=== PATIENT | male | born 1960 | race Caucasian/White ===

== ENCOUNTER 2017-04-30 10:47 | Emergency (ER) | payer BC ==
[2017-04-30] MEDS ORDERED: SODIUM CHLORIDE 0.9% 500 ML IV STA ×2 (11:26→14:50)
[2017-04-30] MEDS ORDERED: SODIUM CHLORIDE 0.9% 1,000 ML IV STA (11:26)
[2017-04-30] MEDS ORDERED: HYDROmorphone 1 MG/ML 1 ML SYRINGE IVP STA ×2 (11:27→14:51)
[2017-04-30] MEDS ORDERED: METOCLOPRAMIDE 5 MG/ML 2 ML VIAL IVP STA (11:27)
--- NOTE | 2017-04-30 11:32 | ED ---
General Adult HPI - General Chief complaint: Neuro Symptoms/Deficit Stated complaint: heart palps Time Seen by Provider: 04/30/17 11:16 Source: patient, family, RN notes reviewed Mode of arrival: ambulatory Limitations: no limitations - History of Present Illness Initial comments: Patient is a pleasant 56-year-old male presenting to the emergency department with complaints of headache and not feeling well. Patient woke up around 7:30 this morning and did complain of headache. Headache is diffuse and severe. Headache has been constant since he woke. Patient has felt somewhat foggy since around 9:00 or so. Patient does have some nausea. No isolated area of weakness. Patient states his face felt a little bit numb earlier. Patient does have a history of similar problem previously and was unclear whether or not symptoms were related to TIA or headache. Patient did see a neurologist who thought symptoms were more related to headache. She was diagnosed with occipital neuralgia. Patient did have injections at that time which did help with his headaches. Patient does have some history with headaches however is unclear on how frequent headaches occur. Patient denies any isolated area of weakness. - Related Data Home Medications Medication Instructions Recorded Confirmed Fluticasone Propionate [Flonase 1 spray EA NOSTRIL DAILY 04/30/17 04/30/17 Allergy Relief] Loratadine [Claritin] 10 mg PO DAILY 04/30/17 04/30/17 Losartan/Hydrochlorothiazide 1 tab PO DAILY 04/30/17 04/30/17 [Losartan-Hctz 100-25 mg Tab] Sertraline [Zoloft] 50 mg PO HS 04/30/17 04/30/17 Previous Rx's Medication Instructions Recorded ALPRAZolam [Xanax] 0.25 mg PO BID PRN #0 tab 02/22/16 Aspirin 81 mg PO DAILY #30 chew 02/22/16 Allergies Allergy/AdvReac Type Severity Reaction Status Date / Time Penicillins Allergy Rash/Hives Verified 04/30/17 11:36 rawfruit Allergy Anaphylaxis Uncoded 04/30/17 11:36 Review of Systems ROS Statement: Those systems with pertinent positive or pertinent negative responses have been documented in the HPI. ROS Other: All systems not noted in ROS Statement are negative. Constitutional: Denies: fever Eyes: Denies: eye pain ENT: Denies: ear pain Respiratory: Denies: cough Cardiovascular: Denies: chest pain Endocrine: Denies: fatigue Gastrointestinal: Denies: abdominal pain Genitourinary: Denies: dysuria Musculoskeletal: Denies: back pain Skin: Denies: rash Neurological: Reports: headache, paresthesias, confusion. Denies: weakness Past Medical History Past Medical History: CVA/TIA, Hypertension Additional Past Medical History / Comment(s): Pt was born with one kidney, past UTI, occipital neuralgia History of Any Multi-Drug Resistant Organisms: None Reported Past Surgical History: Back Surgery Additional Past Surgical History / Comment(s): 2 back surgeries-fusions and refusion. Past Anesthesia/Blood Transfusion Reactions: No Reported Reaction Additional Past Anesthesia/Blood Transfusion Reaction / Comment(s): Pt has never received blood. Past Psychological History: Anxiety Smoking Status: Former smoker Past Alcohol Use History: Occasional Past Drug Use History: None Reported - Past Family History Father Family Medical History: Coronary Artery Disease (CAD), Myocardial Infarction ([place] ) Additional Family Medical History / Comment(s): Father has had colectomy for GI bleed. He is 87 yrs old. Mother Family Medical History: Coronary Artery Disease (CAD) Additional Family Medical History / Comment(s): Mother has cardiac stent. She is 76yrs old. General Exam Limitations: no limitations General appearance: alert, in no apparent distress Head exam: Present: atraumatic Eye exam: Present: normal appearance, PERRL, EOMI. Absent: nystagmus ENT exam: Present: normal oropharynx Neck exam: Present: normal inspection Respiratory exam: Present: normal lung sounds bilaterally Cardiovascular Exam: Present: regular rate, normal rhythm GI/Abdominal exam: Present: soft. Absent: tenderness Extremities exam: Present: normal inspection Neurological exam: Present: alert, oriented X3, CN II-XII intact. Absent: motor sensory deficit Expanded Patient oriented to: Present: person, place, time Speech: Present: fluid speech Cranial nerves: EOM's Intact: Normal, Facial Sensation: Normal Sensory exam: Upper Extremity Light Touch: Normal, Lower Extremity Light Touch: Normal Motor strength exam: RUE: 5, LUE: 5, RLE: 5, LLE: 5 Eye Response: (4) open spontaneously Motor Response: (6) obeys commands Verbal Response: (5) oriented Psychiatric exam: Present: normal affect, normal mood Skin exam: Present: normal color Course Vital Signs 04/30/17 04/30/17 04/30/17 10:49 11:53 13:43 Temperature 98.9 F Pulse Rate 82 74 58 L Respiratory 16 20 20 Rate Blood Pressure 192/88 167/84 143/81 O2 Sat by Pulse 99 98 96 Oximetry 04/30/17 04/30/17 14:00 15:00 Temperature Pulse Rate 60 68 Respiratory 18 18 Rate Blood Pressure 141/64 140/71 O2 Sat by Pulse 95 98 Oximetry EKG Findings - EKG Comments: EKG Findings:: Normal sinus rhythm 73. NV 146. QRS 98. QT 374. QTC 412. Normal axis. Normal QRS. No acute ST change. Medical Decision Making - Medical Decision Making Patient reexamined and is feeling better. Patient states he does get these headaches similar to this all the time and requests discharge home. Patient requests work note through Friday. - Lab Data Result diagrams: 04/30/17 11:10 04/30/17 11:10 Lab Results 04/30/17 04/30/17 04/30/17 Range/Units 11:10 11:10 11:10 WBC 7.2 (3.8-10.6) k/uL RBC 5.18 (4.30-5.90) m/uL Hgb 16.7 (13.0-17.5) gm/dL Hct 49.6 (39.0-53.0) % MCV 95.7 (80.0-100.0) fL MCH 32.2 (25.0-35.0) pg MCHC 33.7 (31.0-37.0) g/dL RDW 12.5 (11.5-15.5) % Plt Count 160 (150-450) k/uL Neutrophils % 74 % Lymphocytes % 18 % Monocytes % 5 % Eosinophils % 1 % Basophils % 1 % Neutrophils # 5.3 (1.3-7.7) k/uL Lymphocytes # 1.3 (1.0-4.8) k/uL Monocytes # 0.4 (0-1.0) k/uL Eosinophils # 0.1 (0-0.7) k/uL Basophils # 0.1 (0-0.2) k/uL PT (9.0-12.0) sec INR (<1.2) APTT (22.0-30.0) sec Sodium 137 (137-145) mmol/L Potassium 4.7 (3.5-5.1) mmol/L Chloride 104 (98-107) mmol/L Carbon Dioxide 21 L (22-30) mmol/L Anion Gap 12 mmol/L BUN 11 (9-20) mg/dL Creatinine 0.85 (0.66-1.25) mg/dL Est GFR (MDRD) Af Amer >60 (>60 ml/min/1.73 sqM) Est GFR (MDRD) Non-Af >60 (>60 ml/min/1.73 sqM) Glucose 134 H (74-99) mg/dL Calcium 9.8 (8.4-10.2) mg/dL Magnesium 2.0 (1.6-2.3) mg/dL Total Bilirubin 0.7 (0.2-1.3) mg/dL AST 35 (17-59) U/L ALT 36 (21-72) U/L Alkaline Phosphatase 53 (38-126) U/L Total Creatine Kinase 201 H (55-170) U/L CK-MB (CK-2) 4.0 H* (0.0-2.4) ng/mL CK-MB (CK-2) Rel Index 2.0 Troponin I <0.012 (0.000-0.034) ng/mL Total Protein 7.5 (6.3-8.2) g/dL Albumin 4.7 (3.5-5.0) g/dL Free T4 1.09 (0.78-2.19) ng/dL Free T3 pg/mL 3.1 (2.8-5.3) pg/ml 04/30/17 Range/Units 11:10 WBC (3.8-10.6) k/uL RBC (4.30-5.90) m/uL Hgb (13.0-17.5) gm/dL Hct (39.0-53.0) % MCV (80.0-100.0) fL MCH (25.0-35.0) pg MCHC (31.0-37.0) g/dL RDW (11.5-15.5) % Plt Count (150-450) k/uL Neutrophils % % Lymphocytes % % Monocytes % % Eosinophils % % Basophils % % Neutrophils # (1.3-7.7) k/uL Lymphocytes # (1.0-4.8) k/uL Monocytes # (0-1.0) k/uL Eosinophils # (0-0.7) k/uL Basophils # (0-0.2) k/uL PT 10.6 (9.0-12.0) sec INR 1.0 (<1.2) APTT 25.0 (22.0-30.0) sec Sodium (137-145) mmol/L Potassium (3.5-5.1) mmol/L Chloride (98-107) mmol/L Carbon Dioxide (22-30) mmol/L Anion Gap mmol/L BUN (9-20) mg/dL Creatinine (0.66-1.25) mg/dL Est GFR (MDRD) Af Amer (>60 ml/min/1.73 sqM) Est GFR (MDRD) Non-Af (>60 ml/min/1.73 sqM) Glucose (74-99) mg/dL Calcium (8.4-10.2) mg/dL Magnesium (1.6-2.3) mg/dL Total Bilirubin (0.2-1.3) mg/dL AST (17-59) U/L ALT (21-72) U/L Alkaline Phosphatase (38-126) U/L Total Creatine Kinase (55-170) U/L CK-MB (CK-2) (0.0-2.4) ng/mL CK-MB (CK-2) Rel Index Troponin I (0.000-0.034) ng/mL Total Protein (6.3-8.2) g/dL Albumin (3.5-5.0) g/dL Free T4 (0.78-2.19) ng/dL Free T3 pg/mL (2.8-5.3) pg/ml Disposition Clinical Impression: Cephalgia Disposition: HOME SELF-CARE Condition: Stable Instructions: General Headache (ED) Additional Instructions: Please follow-up with your doctor this week. Return for weakness, loss of sensation, fever, worsening symptoms or other concerns. Referrals: Adelfo Antunez DO [Primary Care Provider] - 1-2 days Time of Disposition: 16:16
[2017-04-30 11:51] LABS: Basophils # (A) 0.1 k/uL (0-0.2); Basophils % (A) 1 %; CHCM 33.6; Eosinophils # (A) 0.1 k/uL (0-0.7); Eosinophils % (A) 1 %; HCT 49.6 % (39.0-53.0); HDW 2.33; HGB 16.7 gm/dL (13.0-17.5); Luc # (Auto) 0.15; Luc % (Auto) 2; Lymphocytes # (A) 1.3 k/uL (1.0-4.8); Lymphocytes % (A) 18 %; MCH 32.2 pg (25.0-35.0); MCHC 33.7 g/dL (31.0-37.0); MCV 95.7 fL (80.0-100.0); Mean Platelet Volume 7.8; Monocytes # (A) 0.4 k/uL (0-1.0); Monocytes % (A) 5 %; Neutrophils # (A) 5.3 k/uL (1.3-7.7); Neutrophils % (A) 74 %; RBC 5.18 m/uL (4.30-5.90); RDW 12.5 % (11.5-15.5); WBC 7.2 k/uL (3.8-10.6); WBC (Perox) 7.23
[2017-04-30 12:02] LABS: Prothrombin Time 10.6 sec (9.0-12.0)
[2017-04-30 12:14] LABS: ALT 36 U/L (21-72); AST 35 U/L (17-59); Alkaline Phosphatase 53 U/L (38-126); Anion Gap 12 mmol/L; Blood Urea Nitrogen 11 mg/dL (9-20); Calcium 9.8 mg/dL (8.4-10.2); Carbon Dioxide 21 mmol/L (22-30); Chloride 104 mmol/L (98-107); Glucose 134 mg/dL (74-99); Non-African American GFR(MDRD) >60 (>60 ml/min/1.73 sqM); Potassium 4.7 mmol/L (3.5-5.1); Sodium 137 mmol/L (137-145); Total Bilirubin 0.7 mg/dL (0.2-1.3); Total Protein 7.5 g/dL (6.3-8.2)
--- NOTE | 2017-04-30 12:15 | XR ---
EXAMINATION TYPE: XR chest 2V DATE OF EXAM: 04/30/2017 COMPARISON: 02/21/2016 HISTORY: Shortness of breath TECHNIQUE: Frontal and lateral views of the chest are obtained. FINDINGS: Scattered senescent parenchymal changes noted. Hyperinflation compatible with COPD. No evidence for infiltrate. No evidence for atelectasis. Heart size is stable. Mediastinal structures are stable and grossly unremarkable. No evidence for hilar prominence. Degenerative changes dorsal spine. IMPRESSION: 1. No evidence for acute pulmonary disease.
[2017-04-30 12:19] LABS: Creatine Kinase 201 U/L (55-170)
--- NOTE | 2017-04-30 12:26 | CT ---
EXAMINATION TYPE: CT brain wo con for TPA DATE OF EXAM: 04/30/2017 COMPARISON: 02/21/2016 HISTORY: Neuro deficits CT DLP: [address] of the brain was performed. The ventricles, basal cisterns and sulci overlying the cerebral convexities demonstrate mild enlargem ent. There is no evidence for intracranial hemorrhage or sulcal effacement. There is decreased attenuation about the periventricular white matter and deep white matter of both c erebral hemispheres, compatible with chronic small vessel ischemia. Differential diagnosis does inclu de demyelination. No mass effects are seen.No midline shift. Osseous calvarium is intact. If symptoms persist consider MRI. IMPRESSION: 1. Age related atrophic and chronic small vessel ischemic change without acute intracranial process s een at this time.
[2017-04-30 12:32] LABS: Troponin I <0.012 ng/mL (0.000-0.034)
[2017-04-30 14:21] VITALS: RESP 18
[2017-04-30] MEDS ORDERED: diphenhydrAMINE 50 MG/ML 1 ML VIAL IVP STA (14:50)
[2017-04-30] MEDS ORDERED: methylPREDNISolone SOD SUCCI 125 MG/2 ML VIAL IV STA (14:50)
[2017-04-30 16:20] VITALS: BP 163/87; PULSE 58; TEMP 97.7
== END 2017-04-30 16:27 | disposition home or self-care (01) ==
LOC: EC 10:47
DX: R51 Headache (principal); R11.0 Nausea; I10 Essential (primary) hypertension; Z86.73 Personal history of transient ischemic attack (TIA), and cerebral infarction without residual deficits; Z79.51 Long term (current) use of inhaled steroids; Z79.899 Other long term (current) drug therapy; Z88.6 Allergy status to analgesic agent; Z91.018 Allergy to other foods
CPT/HCPCS: 36415; 93005; 84439; 84481; 80053; 82550; 82553; 83735; 84484; 85025; 85610; 85730; 71020; 70450; 99285; 96374; 96375 ×3; 96376; 96361 ×5; J1200; J2765; J2930; J1170

== ENCOUNTER 2017-11-17 13:26 | Observation (INO) | payer BC ==
[2017-11-17] MEDS ORDERED: RX INFO: IV CONTRAST WAS GIVEN 1 EACH MISC MISCELLANE PRN (13:45)
--- NOTE | 2017-11-17 13:52 | ED ---
General Adult HPI - General Chief complaint: Neuro Symptoms/Deficit Stated complaint: Hypertension, Dizziness Time Seen by Provider: 11/17/17 13:32 Source: patient, EMS, RN notes reviewed Mode of arrival: EMS Limitations: no limitations - History of Present Illness Initial comments: 57-year-old presents from work with dizziness, and headache. Patient is unable to give a complete history. EMS states he has said both of his headache began suddenly and is also had a headache for the past 24 hours. He does have history of TIA. Patient complains of headache, he describes it as right retro- orbital. He is unable to give significant details of the history. He somewhat confused. EMS reported elevated blood pressure in the 180s systolic. Denies chest pain, denies abdominal pain. - Related Data Home Medications Medication Instructions Recorded Confirmed Loratadine [Claritin] 10 mg PO DAILY 04/30/17 11/17/17 Losartan/Hydrochlorothiazide 1 tab PO DAILY 04/30/17 11/17/17 [Losartan-Hctz 100-25 mg Tab] Sertraline [Zoloft] 50 mg PO HS 04/30/17 04/30/17 Aspirin 325 mg PO DAILY 11/17/17 11/17/17 Allergies Allergy/AdvReac Type Severity Reaction Status Date / Time Penicillins Allergy Rash/Hives Verified 11/17/17 13:56 rawfruit Allergy Anaphylaxis Uncoded 11/17/17 13:40 Review of Systems ROS Statement: Those systems with pertinent positive or pertinent negative responses have been documented in the HPI. ROS Other: All systems not noted in ROS Statement are negative. Past Medical History Past Medical History: CVA/TIA, Hypertension Additional Past Medical History / Comment(s): Pt was born with one kidney, past UTI, occipital neuralgia History of Any Multi-Drug Resistant Organisms: None Reported Past Surgical History: Back Surgery Additional Past Surgical History / Comment(s): 2 back surgeries-fusions and refusion. Past Anesthesia/Blood Transfusion Reactions: No Reported Reaction Additional Past Anesthesia/Blood Transfusion Reaction / Comment(s): Pt has never received blood. Past Psychological History: Anxiety Smoking Status: Former smoker Past Alcohol Use History: Occasional Past Drug Use History: None Reported - Past Family History Father Family Medical History: Coronary Artery Disease (CAD), Myocardial Infarction ([place] ) Additional Family Medical History / Comment(s): Father has had colectomy for GI bleed. He is 87 yrs old. Mother Family Medical History: Coronary Artery Disease (CAD) Additional Family Medical History / Comment(s): Mother has cardiac stent. She is 76yrs old. General Exam Limitations: no limitations General appearance: alert Head exam: Present: atraumatic, normocephalic, other (Tenderness, bilateral occipital and upper cervical region) Eye exam: Present: normal appearance, PERRL, EOMI ENT exam: Present: normal exam Neck exam: Present: normal inspection, tenderness. Absent: meningismus Respiratory exam: Present: normal lung sounds bilaterally. Absent: respiratory distress, wheezes Cardiovascular Exam: Present: regular rate, normal rhythm GI/Abdominal exam: Present: soft. Absent: distended, tenderness Extremities exam: Present: normal inspection, normal capillary refill. Absent: pedal edema, calf tenderness Neurological exam: Present: alert, oriented X3, CN II-XII intact. Absent: motor sensory deficit Psychiatric exam: Present: normal affect, normal mood Skin exam: Present: warm, dry, intact. Absent: cyanosis, diaphoretic Course Vital Signs 11/17/17 13:38 Temperature 98.8 F Pulse Rate 89 Respiratory 18 Rate Blood Pressure 162/93 O2 Sat by Pulse 98 Oximetry - Reevaluation(s) Reevaluation #1: 11/17/17 15:49 Further history obtained from the patient's states that he has been complaining of a headache for the past several days he had an episode of vomiting. Patient had similar presentation approximately one year ago, was diagnosed with TIA and occipital neuralgia according to the patient's . EKG Findings - EKG Comments: EKG Findings:: EKG: Normal sinus rhythm, ventricular rate of 88, CO interval 174 , QRS duration 88, QTC 425, there is no ST segment elevation, there is prominent T waves throughout. Medical Decision Making - Medical Decision Making 57-year-old male presenting with headache, history limited at the time of presentation. Blood pressure is elevated, there is nonfocal neurologic exam. Given the elevated blood pressure and severe headache, CT and CT angiography is obtained for concern for intracranial hemorrhage or aneurysm. The studies are both negative. Patient is given headache medication in the emergency department with minimal relief. Further history obtained from the patient's , he did have similar presentation previously, neurology felt this was likely occipital neuralgia, but there was concern for TIA. Patient's presentation is more consistent with headache rather than TIA or CVA. However patient's headache fails to improve in the emergency department. He will be admitted for symptomatically treatment of headache and neurology evaluation. - Lab Data Result diagrams: 11/17/17 13:48 11/17/17 13:48 Lab Results 11/17/17 11/17/17 11/17/17 Range/Units 13:48 13:48 13:48 WBC 8.8 (3.8-10.6) k/uL RBC 5.20 (4.30-5.90) m/uL Hgb 15.7 (13.0-17.5) gm/dL Hct 46.5 (39.0-53.0) % MCV 89.3 (80.0-100.0) fL MCH 30.2 (25.0-35.0) pg MCHC 33.8 (31.0-37.0) g/dL RDW 12.5 (11.5-15.5) % Plt Count 155 (150-450) k/uL Neutrophils % 81 % Lymphocytes % 12 % Monocytes % 5 % Eosinophils % 1 % Basophils % 1 % Neutrophils # 7.2 (1.3-7.7) k/uL Lymphocytes # 1.0 (1.0-4.8) k/uL Monocytes # 0.4 (0-1.0) k/uL Eosinophils # 0.1 (0-0.7) k/uL Basophils # 0.0 (0-0.2) k/uL PT (9.0-12.0) sec INR (<1.2) APTT (22.0-30.0) sec Sodium 139 (137-145) mmol/L Potassium 4.2 (3.5-5.1) mmol/L Chloride 103 (98-107) mmol/L Carbon Dioxide 24 (22-30) mmol/L Anion Gap 12 mmol/L BUN 18 (9-20) mg/dL Creatinine 0.79 (0.66-1.25) mg/dL Est GFR (CKD-EPI)AfAm >90 (>60 ml/min/1.73 sqM) Est GFR (CKD-EPI)NonAf >90 (>60 ml/min/1.73 sqM) Glucose 132 H (74-99) mg/dL Calcium 9.8 (8.4-10.2) mg/dL Total Bilirubin 0.4 (0.2-1.3) mg/dL AST 21 (17-59) U/L ALT 33 (21-72) U/L Alkaline Phosphatase 40 (38-126) U/L Total Creatine Kinase 159 (55-170) U/L CK-MB (CK-2) 3.3 H* (0.0-2.4) ng/mL CK-MB (CK-2) Rel Index 2.1 Troponin I <0.012 (0.000-0.034) ng/mL Total Protein 6.9 (6.3-8.2) g/dL Albumin 4.3 (3.5-5.0) g/dL Urine Color Urine Appearance (Clear) Urine pH (5.0-8.0) Ur Specific [place] (1.001-1.035) Urine Protein (Negative) Urine Glucose (UA) (Negative) Urine Ketones (Negative) Urine Blood (Negative) Urine Nitrite (Negative) Urine Bilirubin (Negative) Urine Urobilinogen (<2.0) mg/dL Ur Leukocyte Esterase (Negative) Urine Opiates Screen (NotDetected) Ur Oxycodone Screen (NotDetected) Urine Methadone Screen (NotDetected) Ur Propoxyphene Screen (NotDetected) Ur Barbiturates Screen (NotDetected) U Tricyclic Antidepress (NotDetected) Ur Phencyclidine Scrn (NotDetected) Ur Amphetamines Screen (NotDetected) U Methamphetamines Scrn (NotDetected) U Benzodiazepines Scrn (NotDetected) Urine Cocaine Screen (NotDetected) U Marijuana (THC) Screen (NotDetected) 11/17/17 11/17/17 Range/Units 13:48 14:17 WBC (3.8-10.6) k/uL RBC (4.30-5.90) m/uL Hgb (13.0-17.5) gm/dL Hct (39.0-53.0) % MCV (80.0-100.0) fL MCH (25.0-35.0) pg MCHC (31.0-37.0) g/dL RDW (11.5-15.5) % Plt Count (150-450) k/uL Neutrophils % % Lymphocytes % % Monocytes % % Eosinophils % % Basophils % % Neutrophils # (1.3-7.7) k/uL Lymphocytes # (1.0-4.8) k/uL Monocytes # (0-1.0) k/uL Eosinophils # (0-0.7) k/uL Basophils # (0-0.2) k/uL PT 10.2 (9.0-12.0) sec INR 1.0 (<1.2) APTT 22.6 (22.0-30.0) sec Sodium (137-145) mmol/L Potassium (3.5-5.1) mmol/L Chloride (98-107) mmol/L Carbon Dioxide (22-30) mmol/L Anion Gap mmol/L BUN (9-20) mg/dL Creatinine (0.66-1.25) mg/dL Est GFR (CKD-EPI)AfAm (>60 ml/min/1.73 sqM) Est GFR (CKD-EPI)NonAf (>60 ml/min/1.73 sqM) Glucose (74-99) mg/dL Calcium (8.4-10.2) mg/dL Total Bilirubin (0.2-1.3) mg/dL AST (17-59) U/L ALT (21-72) U/L Alkaline Phosphatase (38-126) U/L Total Creatine Kinase (55-170) U/L CK-MB (CK-2) (0.0-2.4) ng/mL CK-MB (CK-2) Rel Index Troponin I (0.000-0.034) ng/mL Total Protein (6.3-8.2) g/dL Albumin (3.5-5.0) g/dL Urine Color Colorless Urine Appearance Clear (Clear) Urine pH 6.0 (5.0-8.0) Ur Specific [place] 1.011 (1.001-1.035) Urine Protein Negative (Negative) Urine Glucose (UA) Negative (Negative) Urine Ketones Negative (Negative) Urine Blood Negative (Negative) Urine Nitrite Negative (Negative) Urine Bilirubin Negative (Negative) Urine Urobilinogen <2.0 (<2.0) mg/dL Ur Leukocyte Esterase Negative (Negative) Urine Opiates Screen Not Detected (NotDetected) Ur Oxycodone Screen Not Detected (NotDetected) Urine Methadone Screen Not Detected (NotDetected) Ur Propoxyphene Screen Not Detected (NotDetected) Ur Barbiturates Screen Not Detected (NotDetected) U Tricyclic Antidepress Not Detected (NotDetected) Ur Phencyclidine Scrn Not Detected (NotDetected) Ur Amphetamines Screen Not Detected (NotDetected) U Methamphetamines Scrn Not Detected (NotDetected) U Benzodiazepines Scrn Not Detected (NotDetected) Urine Cocaine Screen Not Detected (NotDetected) U Marijuana (THC) Screen Not Detected (NotDetected) Disposition Clinical Impression: Headache, Intractable headache Disposition: ADMITTED IP TO THIS [facility] Condition: Stable Is patient prescribed a controlled substance at discharge?: No Referrals: Adelfo Antunez DO [Primary Care Provider] - 1-2 days Decision to Admit Reason: Admit from EC Decision Date: 11/17/17 Decision Time: 16:10
[2017-11-17 13:58] LABS: Basophils % (A) 1 %; Eosinophils # (A) 0.1 k/uL (0-0.7); Eosinophils % (A) 1 %; HCT 46.5 % (39.0-53.0); HGB 15.7 gm/dL (13.0-17.5); Lymphocytes % (A) 12 %; MCH 30.2 pg (25.0-35.0); MCHC 33.8 g/dL (31.0-37.0); MCV 89.3 fL (80.0-100.0); Monocytes # (A) 0.4 k/uL (0-1.0); Monocytes % (A) 5 %; Neutrophils # (A) 7.2 k/uL (1.3-7.7); Neutrophils % (A) 81 %; Platelet Count 155 k/uL (150-450); RDW 12.5 % (11.5-15.5); WBC 8.8 k/uL (3.8-10.6)
--- NOTE | 2017-11-17 14:00 | CT ---
EXAMINATION TYPE: CT brain wo con DATE OF EXAM: 11/17/2017 COMPARISON: 04/30/2017 HISTORY: 57-year-old male nonverbal at time of exam. Confusion, altered mental status with history of prior TIA. TECHNIQUE: Examination was done in axial plane without intravenous contrast. Coronal and sagittal r econstructions performed. CT DLP: 793 mGycm Automated exposure control for dose reduction was used. FINDINGS: There is no evidence of acute intracranial hemorrhage, acute ischemic changes, mass, mass-effect, or extra-axial fluid collection. There is no effacement of cerebral sulci or basal subarachnoid cister ns. There is no hydrocephalus. There is no midline shift. Moffett-white matter distinction is preserv ed. Trace mucosal thickening within the ethmoid air cells. Mastoid air cells well pneumatized. Visualized orbits and globes are intact. IMPRESSION: No acute intracranial abnormality seen.
[2017-11-17 14:06] LABS: ALT 33 U/L (21-72); AST 21 U/L (17-59); Albumin 4.3 g/dL (3.5-5.0); Alkaline Phosphatase 40 U/L (38-126); Anion Gap 12 mmol/L; Blood Urea Nitrogen 18 mg/dL (9-20); Calcium 9.8 mg/dL (8.4-10.2); Carbon Dioxide 24 mmol/L (22-30); Chloride 103 mmol/L (98-107); Glucose 132 mg/dL (74-99); Partial Thromboplastin Time 22.6 sec (22.0-30.0); Potassium 4.2 mmol/L (3.5-5.1); Prothrombin Time 10.2 sec (9.0-12.0); Sodium 139 mmol/L (137-145); Total Bilirubin 0.4 mg/dL (0.2-1.3); Total Protein 6.9 g/dL (6.3-8.2)
--- NOTE | 2017-11-17 14:21 | XR ---
EXAMINATION TYPE: XR chest 2V DATE OF EXAM: 11/17/2017 COMPARISON: 04/30/2017 HISTORY: 57-year-old male confusion, altered mental status TECHNIQUE: AP and lateral views FINDINGS: The cardiomediastinal silhouette, aorta, and pulmonary vasculature are within normal limits. Lungs an d pleural spaces are clear. IMPRESSION: No acute cardiopulmonary process.
[2017-11-17 14:23] LABS: Creatine Kinase 159 U/L (55-170)
--- NOTE | 2017-11-17 14:33 | CT ---
EXAMINATION TYPE: CT angio head neck DATE OF EXAM: 11/17/2017 HISTORY: Patient shows signs of altered mental status. COMPARISON: CTA head and neck February 21, 2016 CT DLP: 344.6 mGycm. Automated Exposure Control for Dose Reduction was Utilized. TECHNIQUE: CTA scan of the neck is performed with IV Contrast, patient injected with 65 mL of Isovue 370, axial images are obtained, coronal and sagittal reformatted images are reviewed. Three-D recons tructed images are created on an independent workstation and reviewed. FINDINGS: Carotid/Vascular Structures: Bovine type aortic arch is redemonstrated. There is minimal noncalcified plaque in aortic arch. There is no significant plaque or stenosis in visualized portion of brachioce phalic or subclavian arteries bilaterally. The right common carotid artery shows normal origin from r ight brachiocephalic artery. There is mild calcified plaque supraclinoid segment of distal right inte rnal carotid artery otherwise there is is no significant plaque or stenosis in the right common or in ternal carotid arteries including at level carotid bulb. There is patent external carotid artery with out significant plaque or stenosis. There is no significant plaque or stenosis of left common or internal carotid arteries including at l evel of left carotid bulb. There is patent left external carotid artery without significant plaque or stenosis. There is codominant vertebral basilar system. Vertebral arteries are patent to basilar junction. Ther e is no significant focal stenosis or aneurysmal change in the posterior circulation. There are hypop lastic posterior communicating arteries noted bilaterally. Images of the anterior circulation show small caliber but patent anterior communicating artery. There is no significant focal stenosis or aneurysmal change seen. Other: There are multilevel uncovertebral facet degenerative changes bilaterally may cervical spine. There are calcified pleural plaques redemonstrated bilaterally suggesting product of prior asbestos e xposure. IMPRESSION: 1. No significant plaque or stenosis at level of common or internal carotid arteries bilaterally. 2. No aneurysmal change at the level of [place] [facility] [place].
[2017-11-17 14:36] LABS: Troponin I <0.012 ng/mL (0.000-0.034)
[2017-11-17 14:38] LABS: Appearance,Urine Clear (Clear); Bilirubin,Urine Negative (Negative); Blood,Urine Negative (Negative); Color,Urine Colorless; Glucose,Urine (UA) Negative (Negative); Ketones,Urine Negative (Negative); Leukocyte Esterase,Urine Negative (Negative); Nitrite,Urine Negative (Negative); Protein,Urine Negative (Negative); Specific Gravity,Urine 1.011 (1.001-1.035); Urobilinogen,Urine <2.0 mg/dL (<2.0)
[2017-11-17 14:44] LABS: Amphetamine Screen,Urine Not Detected (NotDetected); Barbiturate Screen,Urine Not Detected (NotDetected); Benzodiazepines Screen,Urine Not Detected (NotDetected); Cocaine Screen,Urine Not Detected (NotDetected); Methadone Screen, Urine Not Detected (NotDetected); Opiate Screen,Urine Not Detected (NotDetected); Oxycodone Screen, Urine Not Detected (NotDetected); Phencyclidine Screen,Urine Not Detected (NotDetected); Tricyclic Antidepressant,Urine Not Detected (NotDetected); Urn Cannabinoid Scrn Not Detected (NotDetected)
[2017-11-17 14:49] LABS: Creatine Kinase MB 3.3 ng/mL (0.0-2.4)
[2017-11-17] MEDS ORDERED: KETOROLAC 30 MG/ML 1 ML VIAL IVP STA (14:58)
[2017-11-17] MEDS ORDERED: ONDANSETRON 4 MG/2 ML VIAL IVP STA (14:58)
[2017-11-17] MEDS ORDERED: SODIUM CHLORIDE 0.9% 500 ML IV ONE (15:10)
[2017-11-17] MEDS ORDERED: MORPHINE SULFATE 4MG/4ML SYRG IVP STA (15:48)
[2017-11-17] MEDS ORDERED: DEXAMETHASONE SOD PHOSPHATE 10 MG/ML 1 ML VIAL IV STA (15:48)
[2017-11-17] MEDS ORDERED: MORPHINE SULFATE 4MG/4ML SYRG IV PRN (16:04)
[2017-11-17] MEDS ORDERED: NALOXONE 0.4 MG/ML 1 ML VIAL IV PRN (16:04)
[2017-11-17] MEDS ORDERED: IBUPROFEN 400 MG TAB PO PRN (16:04)
[2017-11-17] MEDS ORDERED: ONDANSETRON 4 MG/2 ML VIAL IVP PRN (16:04)
[2017-11-17] MEDS ORDERED: ASPIRIN 325 MG TAB PO STA (16:06)
[2017-11-17] MEDS ORDERED: MORPHINE SULFATE 4MG/4ML SYRG IVP ONE (18:12)
--- NOTE | 2017-11-17 20:44 | MR ---
EXAMINATION TYPE: MR brain wo con DATE OF EXAM: 11/17/2017 COMPARISON: CT 11/17/2017 HISTORY: Dizziness and shooting head pains TECHNIQUE: Multiplanar, multisequence images of the brain were acquired. Diffusion weighted imaging w as performed. FINDINGS: No restricted diffusion to suggest acute or subacute infarction. No mass or mass effect or definite signal characteristic abnormalities. Vascular flow voids are unremarkable. Extra-axial compartment is unremarkable. Skeletal structures are negative. The mastoid sinus air cells, middle ear cavities, and paranasal sin uses are clear. Orbits are unremarkable. Visualized extracranial soft tissues are unremarkable. IMPRESSION: NO ACUTE PROCESS.
[2017-11-17] MEDS: CLOPIDOGREL 75 MG TAB PO SCH (21:17)
[2017-11-17] MEDS: ACETAMINOPHEN TAB 325 MG TAB PO PRN (21:17)
[2017-11-17] MEDS ORDERED: methylPREDNISolone SOD SUCCI 40 MG/ML 1 ML VIAL IV STA (22:41)
[2017-11-17] MEDS ORDERED: SERTRALINE 50 MG TAB PO SCH (22:45)
[2017-11-17] MEDS: NAPROXEN 250 MG TAB PO SCH (23:23)
--- NOTE | 2017-11-17 23:31 | HP ---
HISTORY AND PHYSICAL DATE OF ADMISSION: 11/17/2017. PRESENTING COMPLAINT: Severe headache. HISTORY OF PRESENTING COMPLAINT: This is a pleasant 57-year-old patient of Dr. Antunez. Chronic stable medical conditions include GERD, anxiety, hypertension. The patient is taking a shower this morning developed a severe headache starting from the back of the head coming forward. Became a bit dizzy. There was no obvious photophobia. Slight nausea. Patient went to work. Symptoms became worse. The patient thought he may felt a bit weak on the right side, was brought in. The patient had a similar admission about 3 years ago, was found to have bioccipital neuritis and did respond to treatment at that time including getting a steroid injection at the hairline. There was no change in speech. No difficulty walking and when I saw the patient the patient did not think he had any more weakness if any. The patient blood pressure was noted to be 170 systolic, but this was accompanied by the headache. Neurology, Dr. Ellington was consulted who ordered a MRI. REVIEW OF SYSTEMS: CONSTITUTIONAL: None. HEENT as above. Respiratory none. Cardiovascular none. Gastrointestinal none. Gastro: Heartburn. none. Musculoskeletal none. Dermatological and hematologic, lymphatic none. Psychiatry some anxiety. Neurological as above. PAST MEDICAL HISTORY: GERD, hypertension, unilateral kidney, occipital neuralgia with nerve block. PAST SURGICAL HISTORY: Back surgery fusion. PSYCH HISTORY: Of anxiety. SOCIAL HISTORY: . The patient smoked 2 packs a day for over 40 years. Stopped in 2012. Drinks beer occasionally. Denies use of recreational drugs. The patient works at [employer]. FAMILY HISTORY: Coronary artery disease. Father had colectomy for GI bleed. MEDICATIONS: Home medications: 1. Aspirin 325 p.o. daily. 2. Losartan hydrochlorothiazide 100/25 1 tab p.o. daily. 3. Claritin 10 mg daily. 4. Zoloft 50 mg q.h.s. ALLERGIES: PENICILLINS . PHYSICAL EXAMINATION: Temperature 98.7, pulse 89, respiratory 18, blood pressure 153/88 earlier, pulse ox 98% on room air. General appearance: Average built, sitting up. The patient was playing on his iPad tablet. HEENT: External appearance of nose and ears normal. Oral cavity normal. Neck JVD not raised. Mass not palpable. HEENT there is some tenderness at the nuchal line. Neck JVD not raised. Mass not palpable. Respiratory effort normal. Lungs fair entry. Cardiovascular 1st and 2nd sounds normal. No edema. ABDOMEN: Soft, nontender, liver and spleen not palpable. Lymphatics: No lymph nodes palpable in the neck or axillae. Psychiatry: Alert and oriented times three. Mood and affect normal. Neurological pupils equal. Cranial nerves grossly intact. Power and sensation grossly intact. INVESTIGATIONS: White count 8.8, hemoglobin 15.7, potassium 4.2, BUN and creatinine is normal. UA negative. Urine drug screen negative. EKG normal sinus rhythm. CT angio brain negative. MRI of the brain noted for stroke. ASSESSMENT: 1. This is a patient presented with severe headache starting at the back of the head coming forward. There is a questionable weakness on the right side. No photophobia. No neck stiffness. Something else on exam. Patient's CT angio is negative. Brain MRI is negative. No evidence of stroke. Physical exam is also not revealing any focal weakness. The patient has tenderness along the nuchal line, which is more classical of occipital neuritis though because of weakness in the right arm, neurological workup as above was done and hence Neurology was consulted. 2. Essential hypertension. 3. Gastroesophageal reflux disease. 4. Anxiety not otherwise specified. 5. Congenital unilateral kidney. PLAN: Patient is put on Plavix by Dr. Ellington. Other home medications are resumed. I will give the patient 1 dose of IV Solu-Medrol and oral prednisone. Also NSAID to help for the episode of occipital neuritis. Neurological TIAs, stroke workup as per Dr. Ellington. I did tell the patient shut off all his screen lights including his iPhone, including his phone, his tablet and the ceiling light and see how he goes from there. Copy to Dr. Antunez. MMODL / IJN: [id number] /
--- NOTE | 2017-11-17 23:40 | CONS ---
CONSULTATION DATE OF CONSULTATION: 11/17/2017. CHIEF COMPLAINT: Headache and weakness. HISTORY OF PRESENT ILLNESS: Mr. Christianson is a pleasant 57-year-old, male, who is being evaluated by the neurology service per the request of Dr. Balbuena for the above-mentioned complaints. The patient was brought into [facility] Emergency Room complaining of a headache for approximately 2 days. The headache is mostly in the occipital region and he ranges it at 9/10 in intensity. He does have a history of headaches, but he states that this is more severe than normal. He denies any recent head injuries. In the emergency room, he was noticed to be somewhat disoriented and his blood pressure was significantly elevated in the 180 systolic. He did not have any chest pain. After being admitted for further workup and management, he was noticed to have some right- sided weakness that was not present in the emergency room. His initial CT scan of the brain was normal. A CT angiogram of the brain and neck were normal. His CBC, INR, and comprehensive metabolic profile were normal. His urinalysis, urine drug screen, and cardiac enzymes were also normal. At the time of my evaluation, he appears to be in no acute distress. He had just received IV morphine, which has helped his headache somewhat. He rates it at 6/10 at the time of my evaluation. His blood pressure continues to be elevated at 172/98. PAST MEDICAL HISTORY: Hypertension, history of transient ischemic attacks, history of spine surgery, recurrent headaches, occipital neuritis, anxiety disorder. SOCIAL HISTORY: The patient is a former smoker. He occasionally drinks alcohol. He denies any drug use. FAMILY HISTORY: Positive for heart disease. HOME MEDICATIONS: Reviewed in the chart. ALLERGIES: No known drug allergies. REVIEW OF SYSTEM: CONSTITUTIONAL: Negative. EYES: Negative. ENT: Negative. CARDIOVASCULAR: As mentioned above. RESPIRATORY: Negative. NEUROLOGICAL: As mentioned above. GASTROINTESTINAL: Negative. GENITOURINARY: Negative. DERMATOLOGICAL: Negative. MUSCULOSKELETAL: As mentioned above. ENDOCRINE: Negative. PSYCHIATRIC: Positive for history of anxiety disorder. PHYSICAL EXAM: Vital signs show a temperature of 98.7, pulse 69, respirations 16, blood pressure 172/98. GENERAL APPEARANCE: The patient is a well-developed male, who appears to be in no acute distress. HEENT: Normocephalic, atraumatic, mild right facial drooping is seen. Tenderness to palpation is felt along bilateral greater occipital nerve region. NECK: Supple with no masses felt. CARDIOVASCULAR: Regular rate and rhythm. ABDOMEN: Nontender nondistended. EXTREMITIES: No edema or clubbing. NEUROLOGIC: The patient is alert aware and oriented x3. Speech and language are normal. Strength is 5-/5 on the right and 5/5 on the left. Mild right pronator drift is seen. Sensory exam was normal to light touch in all 4 extremities. Cranial nerve testing showed a minimal right facial droop. IMPRESSION: 1. Intractable headache. 2. Occipital neuritis. 3. Right hemiparesis. 4. Possible stroke. 5. Hypertension. RECOMMENDATIONS: The patient does have mild right hemiparesis on my examination and this could be due to a hemiplegic migraine. Nonetheless, an acute stroke needs to be ruled out. I did order an MRI of the brain without contrast. Continue analgesics as needed. An EEG has been ordered. He does have evidence of occipital neuritis on my examination, and if his workup is negative he will be scheduled for a greater occipital nerve block. I will also order a carotid Doppler. I will order fasting lipid panel and serum homocystine level. The patient is already on aspirin at home and I will change this to Plavix. Continue the rest of your current workup and management. I will continue to follow with you. Further recommendations to follow. Thank you for allowing me to participate in the care of your patient. If you have any questions, please feel free to contact me. WENDY / MARTINN: [id number] /
[2017-11-18] MEDS: ACETAMINOPHEN TAB 325 MG TAB PO PRN ×2 (06:05→14:32)
[2017-11-18] MEDS ORDERED: MAGNESIUM SULFATE-D5W PMX 1 GM in DEXTROSE/WATER 1 100ML.BAG IVPB ONE (06:37)
[2017-11-18] MEDS: CALCIUM CARBONATE LIQUID 500 MG/5 ML CUP PO SCH ×4 (06:45→21:04)
[2017-11-18 06:48] LABS: Cholesterol 203 mg/dL (<200); HDL Cholesterol 92 mg/dL (40-60); LDL Cholesterol,Calculated 98 mg/dL (0-99); Triglycerides 67 mg/dL (<150)
[2017-11-18] MEDS: ENOXAPARIN 40 MG/0.4 ML SYRINGE SQ SCH (08:39)
[2017-11-18] MEDS: NAPROXEN 250 MG TAB PO SCH ×2 (08:39→21:04)
[2017-11-18] MEDS: methylPREDNISolone SOD SUCCI 250 MG in SODIUM CHLORIDE 0.9% 100 ML IVPB SCH ×2 (08:39→17:55)
[2017-11-18] MEDS: METOCLOPRAMIDE 5 MG/ML 2 ML VIAL IVP SCH ×2 (08:39→17:55)
[2017-11-18] MEDS: HYDROCHLOROTHIAZIDE 25 MG TAB PO SCH (08:40)
[2017-11-18] MEDS: LOSARTAN 50 MG TAB PO SCH (08:40)
[2017-11-18] MEDS ORDERED: ASPIRIN 325 MG TAB PO SCH (09:00)
[2017-11-18] MEDS ORDERED: predniSONE 20 MG TAB PO SCH (09:00)
[2017-11-18] MEDS ORDERED: ASPIRIN 81 MG PO SCH (09:00)
[2017-11-18] MEDS ORDERED: BUTALB/APAP/CAFF 50-325-40MG TAB PO PRN (14:18)
--- NOTE | 2017-11-18 19:02 | EEG ---
ELECTROENCEPHALOGRAM REPORT DATE OF SERVICE: 11/18/2017. REASON FOR TESTING: Headache and stroke. DESCRIPTION OF THE PROCEDURE: This EEG was performed using a 21 channel digital electroencephalograph, following international 10-20 system. DESCRIPTION OF THE RECORDING: From the beginning of the tracing, and with patient's eyes closed, the background rhythm was mostly consisting of 9 Hz alpha frequency in the posterior occipital leads. No obvious asymmetry is seen. Photic stimulation was performed with a good driving response seen. No pathological waves were elicited. Occasional movement and muscle artifacts are seen. Hyperventilation was not performed. The patient remains awake throughout the tracing. No epileptiform discharges were seen. His EKG lead showed a regular rate and rhythm. INTERPRETATION: This awake EEG can be considered within normal limits. There was no asymmetry seen. No epileptiform discharges were noticed. The absence of epileptiform discharges does not rule out the diagnosis of epilepsy, therefore clinical correlation is recommended. MMMARIANNEL / IJJorge: [id number] /
[2017-11-18] MEDS ORDERED: ALPRAZolam 0.25 MG TAB PO PRN (19:21)
--- NOTE | 2017-11-18 20:59 | P.PN ---
Subjective Progress Note Date: 11/18/17 Principal diagnosis: Intractable Head Pain Interval Update (11/18/17): Neurology is following on a 57 year old male for intractable head pain. Provider assumed care and management from off going group provider today. Patient has been receiving IV solumedrol, magnesium, reglan, zofran and patient was still complaining of bilateral frontal and occipital pain, but stated that the pain had decreased by 25-50% since starting treatment in the ED. Patient stated the steroids had helped but was asking for more morphine. Patient's MRI brain noted no acute process. Patient was alert and oriented x 3, lying in bed in no acute distress, spouse at the bedside. Initial information: Patient presented to the ED with symptoms that included head pain x 2 days prior to presentation with mostly occipital complaints. Patient has a history of headaches but these are more intense than normal. Patient denied head injury. In the ED patient was found to have elevated BP ( 180 systolic). After admission the patient began having right sided upper and lower extremity weakness not originally present in the ED. Patient had imaging and testing consisting of CT-brain, Ct-angiogram which were all normal. CBC, CMP, INR, UA were also normal at admission. Medications included IV morhine in the ED which did decrease the headache somewhat but failed to decrease the blood pressure. Objective - Vital Signs Vital signs: Vital Signs Temp 98.5 F 11/18/17 12:00 Pulse 95 11/18/17 16:00 Resp 18 11/18/17 16:00 BP 129/75 11/18/17 16:00 Pulse Ox 92 L 11/18/17 16:00 Intake & Output 11/18/17 11/18/17 11/19/17 06:59 18:59 06:59 Intake Total 1090 Balance 1090 Weight 74.1 kg Intake: Intake, IV Titration 250 Amount methylPREDNISolone SOD 250 SUCCI 250 mg In Sodium Chloride 0.9% 100 ml @ 100 mls/hr IVPB Q8HR [facility] Rx#:[id number] Oral 840 Other: Voiding Method Toilet Toilet # Voids 2 1 1 # Bowel Movements 0 - Exam General appearance: Alert & oriented x4, no apparent distress. Head: Atraumatic, normocephalic, normal inspection Eyes: Well appearance, PERRLA, EOMI. Absent scleral icterus, conjunctival injection, nystagmus, periorbital swelling. Ear, nose and throat: Normal exam, mucous membranes moist Neck: Normal inspection, absent tenderness, lymphadenopathy. Respiratory: No increased work of breathing Cardiovascular: Regular rate, rhythm GI/abdominal: Normal bowel sounds, nondistended, no tenderness, no guarding, no rebound, no rigidity. Extremities: All range of motion, normal capillary refill, no tenderness, pedal edema joint swelling, calf tenderness. Neurological: cranial nerves II through XII intact no lateralizing weakness no seizure activity noted on physical exam no pronator drift and no nystagmus. speech and language are normal Left lower extremity: 5/5 Right lower extremity: 5-/5 Left upper extremity: 5/5 Right upper extremity: 5-/5 Sensation: equal in all four extremities Psychological: Mood and affect appropriate for setting. - Labs CBC & Chem 7: 11/17/17 13:48 11/17/17 13:48 Labs: Abnormal Lab Results - Last 24 Hours (Table) 11/18/17 Range/Units 05:55 Cholesterol 203 H (<200) mg/dL HDL Cholesterol 92 H (40-60) mg/dL Assessment and Plan (1) Hypertension Current Visit: Yes Status: Acute Code(s): I10 - ESSENTIAL (PRIMARY) HYPERTENSION SNOMED Code(s): 38399013 (2) Intractable headache Current Visit: Yes Status: Acute Code(s): R51 - HEADACHE SNOMED Code(s): 21446631 (3) Occipital neuritis Current Visit: No Status: Acute Code(s): M54.81 - OCCIPITAL NEURALGIA SNOMED Code(s): 01092392 Plan: 1. Intractable headache 2. Occipital neuralgia 3. Hypertension Based on patient's negative MRI and improving symptoms with IV solumedrol and fioricet, the patient's pain is more consistent with intractable headache. Patients is still improving at this time with IV steroid infusion but is not back to baseline. His right sided weakness has also improved and is almost back to baseline. Ordered: Continue IV solumedrol as ordered Continue Fioricet as ordered Patient will possibly need GONB or TONB out patient for his posterior head pain. Continue to control blood pressure within accepted parameters. Status: Neurology will continue to follow Anticipate possible discharge 11/19/17 if patient's symptoms decrease to a tolerable level. Patient will need follow up within 10 business days once cleared for discharge. I have discussed the plan of care with the physician prior to implementation and he agrees with the plan as implemented.
[2017-11-18] MEDS: CLOPIDOGREL 75 MG TAB PO SCH (21:04)
[2017-11-18] MEDS ORDERED: methylPREDNISolone SOD SUCCI 125 MG/2 ML VIAL ONE (23:35)
[2017-11-18] MEDS ORDERED: METOCLOPRAMIDE 5 MG/ML 2 ML VIAL ONE (23:35)
[2017-11-19] MEDS: methylPREDNISolone SOD SUCCI 250 MG in SODIUM CHLORIDE 0.9% 100 ML IVPB SCH ×2 (06:58→08:37)
[2017-11-19] MEDS: METOCLOPRAMIDE 5 MG/ML 2 ML VIAL IVP SCH ×2 (06:58→08:37)
[2017-11-19] MEDS: CALCIUM CARBONATE LIQUID 500 MG/5 ML CUP PO SCH ×2 (07:02→12:09)
[2017-11-19] MEDS: NAPROXEN 250 MG TAB PO SCH (08:13)
[2017-11-19] MEDS: LOSARTAN 50 MG TAB PO SCH (08:13)
[2017-11-19] MEDS: HYDROCHLOROTHIAZIDE 25 MG TAB PO SCH (08:13)
[2017-11-19] MEDS: ENOXAPARIN 40 MG/0.4 ML SYRINGE SQ SCH (08:13)
[2017-11-19 11:55] VITALS: BP 149/86; PULSE 74; RESP 16; TEMP 97.1
--- NOTE | 2017-11-19 19:15 | PN ---
PROGRESS NOTE DATE OF SERVICE: 11/18/17. PRESENTING COMPLAINT: Headache. INTERVAL HISTORY: This patient is seen by me yesterday on 11/18/17. [employer] was down. The patient presented with a headache, felt to be occipital neuritis, feeling a bit better, being followed by neurology who is doing further neurological workup. The patient does feel a bit better. No focal symptoms. REVIEW OF SYSTEMS: Done for constitutional, cardiovascular, GI, pulmonary; relevant findings as above. CURRENT MEDICATIONS: Reviewed. EXAMINATION: Temperature 98.5, pulse 70, respiratory 18, blood pressure 139/81, pulse ox 94% on room air. GENERAL APPEARANCE: Sitting up in bed, more comfortable today. EYES: Pupils equal. Conjunctivae normal. HEENT: External nose and ears normal. Oral cavity normal. Tenderness along the nuchal line. NECK: JVD not raised. Mass not palpable. RESPIRATORY: Effort, lungs are clear. CARDIOVASCULAR: 1st and 2nd sounds normal, no edema. ABDOMEN: Soft, nontender. Liver and spleen not palpable. PSYCHIATRY: Alert and oriented x3. Mood and affect less anxious-appearing. INVESTIGATIONS: LDL 98. MRI of the brain, nil acute. EEG within normal limits. ASSESSMENT: 1. Severe cephalgia felt to be occipital neuritis, responding better to steroids. 2. Essential hypertension. 3. Gastroesophageal reflux disease. 4. Anxiety, not otherwise specified. 5. Congenital unilateral kidney. PLAN: Care was discussed with the patient. Patient seems to be responding well to the steroids and NSAIDs. Seizure has been ruled out. Overall, patient feels better. Await further input from Neurology. Care was discussed with the patient. MMODL / IJN: [id number] /
--- NOTE | 2017-11-19 23:21 | DS ---
DISCHARGE SUMMARY DATE OF ADMISSION: 11/17/2017. DATE OF DISCHARGE: 11/19/2017. FINAL DIAGNOSES: 1. Acute severe occipital neuritis. 2. Essential hypertension. 3. Gastroesophageal reflux disease. 4. Anxiety, not otherwise specified. 5. Congenital unilateral kidney. HOSPITAL COURSE: This patient presented with severe headache, felt to be occipital neuritis. Patient was given steroids and NSAIDs. The pain was greatly improved. Patient was tender along the nuchal line. The patient did have an MRI, CT angio of the brain, and EEG that were all negative. Today care was discussed with the patient. Questions were answered. On examination, tenderness along the nuchal line improved. DISCHARGE MEDICATIONS: 1. Claritin 10 mg a day. 2. Losartan hydrochlorothiazide 100/25 one tab a day. 3. Xanax 0.25 p.o. t.i.d. 4. Aspirin 81 mg a day. 5. Prilosec 20 mg a day. 6. Prednisone 40 mg for 5 days. FOLLOWUP: 1. Follow up with Dr. Antunez in 1 week. 2. Follow up with Dr. Newman/Dr. Ellington in one week, the neurologist. The patient is to return to work on November 24, 2017. MMODL / IJN: [id number] /
== END 2017-11-19 13:20 | disposition home or self-care (01) ==
LOC: EC 13:26 → 4MS4W 16:04 → 6SEL 18:59
PROVIDERS: ADMIT Hospitalist; ATTEND Hospitalist
DX: M54.81 Occipital neuralgia (principal); I10 Essential (primary) hypertension; F41.9 Anxiety disorder, unspecified; R29.810 Facial weakness; G81.91 Hemiplegia, unspecified affecting right dominant side; K21.9 Gastro-esophageal reflux disease without esophagitis; Q60.0 Renal agenesis, unilateral; Z79.82 Long term (current) use of aspirin; R41.0 Disorientation, unspecified; Z79.899 Other long term (current) drug therapy; Z88.0 Allergy status to penicillin; Z91.018 Allergy to other foods; Z86.73 Personal history of transient ischemic attack (TIA), and cerebral infarction without residual deficits; Z87.440 Personal history of urinary (tract) infections; Z87.891 Personal history of nicotine dependence; Z98.1 Arthrodesis status; Z82.49 Family history of ischemic heart disease and other diseases of the circulatory system; Z83.79 Family history of other diseases of the digestive system
CPT/HCPCS: 99285 ×2; 96375 ×7; 96376 ×3; 96365; 96366 ×2; 96367; 96372 ×2; 36415; 94760; 95816; 93005; 80061; 80053; 82550; 82553; 84484; 85025; 85610; 85730; 81003; 83090; 80306; 71046; 70496; 70450; 70498; 70551; G0378 ×3; J1100; J2765 ×2; J2920; J2930 ×2; J2405; J1650 ×2; J1885; J3475; Q9967; J2270

== ENCOUNTER → 2019-09-22 | Outpatient (CLI) | payer BC ==
--- NOTE | 2019-09-22 17:01 | XR ---
EXAMINATION TYPE: XR chest 2V, XR ribs LT DATE OF EXAM: 09/22/2019 COMPARISON: Prior chest x-ray 11/17/2017 HISTORY: Altered mental status TECHNIQUE: Frontal and lateral views of the chest are obtained, 4 views of the left ribs. FINDINGS: There is no focal air space opacity, pleural effusion, or pneumothorax seen. The cardiac silhouette size is within normal limits. The osseous structures are intact. No evident displaced ri b fracture. Bone scan could be performed for increased sensitivity as indicated. IMPRESSION: No acute cardiopulmonary process.
== END | disposition home or self-care (01) ==
LOC: RADXRMAIN 14:29
PROVIDERS: ATTEND Physician Assistant
DX: R07.81 Pleurodynia (principal)
CPT/HCPCS: 71046

== ENCOUNTER 2023-09-01 10:13 | Observation (INO) | payer BC ==
[2023-09-01] MEDS ORDERED: NITROGLYCERIN SL TABS 0.4 MG TAB SUBLINGUAL STA (10:37)
[2023-09-01] MEDS ORDERED: hydrALAZINE HCL 20 MG/ML 1 ML VIAL IVP STA (10:37)
[2023-09-01] MEDS ORDERED: ASPIRIN 81 MG PO STA (10:37)
[2023-09-01 10:56] LABS: Basophils # (A) 0.1 k/uL (0-0.2); Basophils % (A) 1 %; Eosinophils # (A) 0.1 k/uL (0-0.7); Eosinophils % (A) 1 %; HCT 51.8 % (39.0-53.0); HGB 17.8 gm/dL (13.0-17.5); Lymphocytes # (A) 1.2 k/uL (1.0-4.8); Lymphocytes % (A) 18 %; MCH 31.6 pg (25.0-35.0); MCHC 34.4 g/dL (31.0-37.0); MCV 91.6 fL (80.0-100.0); Mean Platelet Volume 8.3; Monocytes # (A) 0.3 k/uL (0-1.0); Monocytes % (A) 5 %; Neutrophils % (A) 74 %; Platelet Count 159 k/uL (150-450); RBC 5.66 m/uL (4.30-5.90); WBC 6.7 k/uL (3.8-10.6)
--- NOTE | 2023-09-01 11:03 | XR ---
EXAMINATION TYPE: XR chest 2V DATE OF EXAM: 09/01/2023 10:53 AM COMPARISON: Chest radiographs from 09/22/2019 TECHNIQUE: XR chest 2V Frontal and lateral views of the chest. CLINICAL INDICATION:Male, 63 years old with history of Chest Pain; FINDINGS: Lungs/Pleura: There is no evidence of pleural effusion, focal consolidation, or pneumothorax. Pulmonary vascularity: Unremarkable. Heart/mediastinum: Cardiomediastinal silhouette is unremarkable. Musculoskeletal: No acute osseous pathology. IMPRESSION: No acute cardiopulmonary disease/process.
[2023-09-01 11:11] LABS: ALT 41 U/L (4-49); African American GFR (CKD) >90 (>60 ml/min/1.73 sqM); Albumin 4.9 g/dL (3.5-5.0); Anion Gap 6 mmol/L; Blood Urea Nitrogen 18 mg/dL (9-20); Carbon Dioxide 24 mmol/L (22-30); Chloride 107 mmol/L (98-107); Glucose 168 mg/dL (74-99); Lipase 49 U/L (23-300); Non-African American GFR(CKD) >90 (>60 ml/min/1.73 sqM); Sodium 137 mmol/L (137-145); Total Bilirubin 0.8 mg/dL (0.2-1.3)
[2023-09-01 11:19] LABS: AST 34 U/L (17-59); Alkaline Phosphatase 50 U/L (38-126); Potassium 4.6 mmol/L (3.5-5.1)
[2023-09-01] MEDS ORDERED: FAMOTIDINE 20 MG/2 ML VIAL IV STA (11:21)
[2023-09-01] MEDS ORDERED: methylPREDNISolone SOD SUCCI 125 MG/2 ML VIAL IV STA (11:21)
[2023-09-01] MEDS ORDERED: diphenhydrAMINE 50 MG/ML 1 ML VIAL IVP STA (11:26)
[2023-09-01 11:30] LABS: Partial Thromboplastin Time 24.9 sec (22.0-30.0); Prothrombin Time 10.5 sec (10.0-12.5)
[2023-09-01] MEDS ORDERED: NITROGLYCERIN SL TABS 0.4 MG TAB SUBLINGUAL PRN (11:54)
--- NOTE | 2023-09-01 12:03 | ED ---
Chest Pain HPI - General Chief Complaint: Chest Pain Stated Complaint: chest pain Time Seen by Provider: 09/01/23 10:24 Source: patient, RN notes reviewed Mode of arrival: wheelchair Limitations: no limitations - History of Present Illness Initial Comments: 63-year-old presents emergency department today with chief complaint of chest pain. Patient states he was at work today when she became very diaphoretic, complaining chest pain shortness of breath. Patient states that centralized chest pain nonradiating. Patient states she feels very weak he does have a history of hypertension has not been on his medications. He states his blood pressure is significant elevated he has been taking his 's blood pressure meds this week. Patient does have a history of smoking, there is some family cardiac history. Patient does admit that several years ago he had cardiac workup with no findings. He denies any abdominal pain no leg pain or leg swelling no history of DVT or PE. - Related Data Home Medications Medication Instructions Recorded Confirmed Loratadine [Claritin] 10 mg PO DAILY 04/30/17 11/17/17 Losartan/Hydrochlorothiazide 1 tab PO DAILY 04/30/17 11/17/17 [Losartan-Hctz 100-25 mg Tab] ALPRAZolam [Xanax] 0.25 mg PO TID 11/18/17 11/18/17 Previous Rx's Medication Instructions Recorded Aspirin 81 mg PO DAILY #1 chewable 11/19/17 Omeprazole [PriLOSEC] 20 mg PO AC-BRKFST #14 cap 11/19/17 predniSONE [Deltasone] 40 mg PO DAILY 5 Days #10 tab 11/19/17 Allergies Allergy/AdvReac Type Severity Reaction Status Date / Time hydralazine Allergy Rash/Hives Verified 09/01/23 11:28 Penicillins Allergy Rash/Hives Verified 09/01/23 10:23 rawfruit Allergy Anaphylaxis Uncoded 11/17/17 13:40 Review of Systems ROS Statement: Those systems with pertinent positive or pertinent negative responses have been documented in the HPI. ROS Other: All systems not noted in ROS Statement are negative. EKG Findings - EKG Comments: EKG Findings:: EKG performed at 10: 29 sinus rhythm rate of 90 IN 152 QRS 90 QT/QTc 335/382 - EKG Results: EKG: interpreted by MANNIE Past Medical History Past Medical History: CVA/TIA, GERD/Reflux, Hypertension Additional Past Medical History / Comment(s): Pt was born with one kidney, past UTI, occipital neuralgia-had nerve block History of Any Multi-Drug Resistant Organisms: None Reported Past Surgical History: Back Surgery Additional Past Surgical History / Comment(s): 2 back surgeries-fusions and refusion. Past Anesthesia/Blood Transfusion Reactions: No Reported Reaction Additional Past Anesthesia/Blood Transfusion Reaction / Comment(s): Pt has never received blood. Past Psychological History: Anxiety Past Alcohol Use History: Occasional Past Drug Use History: None Reported - Past Family History Father Family Medical History: Coronary Artery Disease (CAD), Myocardial Infarction ([place]) Additional Family Medical History / Comment(s): Father has had colectomy for GI bleed. He is 87 yrs old. Mother Family Medical History: Coronary Artery Disease (CAD) Additional Family Medical History / Comment(s): Mother has cardiac stent. She is 76yrs old. General Exam Limitations: no limitations General appearance: alert, in no apparent distress Head exam: Present: atraumatic, normocephalic, normal inspection Eye exam: Present: normal appearance, PERRL, EOMI. Absent: scleral icterus, conjunctival injection, periorbital swelling ENT exam: Present: normal exam, normal oropharynx, mucous membranes moist Neck exam: Present: normal inspection, full ROM. Absent: tenderness, meningismus, lymphadenopathy Respiratory exam: Present: normal lung sounds bilaterally. Absent: respiratory distress, wheezes, rales, rhonchi, stridor Cardiovascular Exam: Present: regular rate, normal rhythm, normal heart sounds. Absent: systolic murmur, diastolic murmur, rubs, gallop, clicks Neurological exam: Present: alert Course Vital Signs 09/01/23 09/01/23 09/01/23 10:21 10:36 11:02 Temperature 98.6 F Pulse Rate 93 89 Pulse Rate [ 90 Rubber Cutter ] Respiratory 16 18 Rate Blood Pressure 202/120 149/101 O2 Sat by Pulse 98 97 Oximetry 09/01/23 09/01/23 11:15 11:30 Temperature 98.8 F Pulse Rate 87 89 Pulse Rate [ Rubber Cutter ] Respiratory 18 18 Rate Blood Pressure 156/94 146/90 O2 Sat by Pulse 98 96 Oximetry Chest Pain MDM - MDM Was pt. sent in by a medical professional or institution (Dr., PA, [employer], urgent care, hospital, or long-term...) When possible be specific @ -[No] Did you speak to anyone other than the patient for history (EMS, parent, family, police, friend...)? What history was obtained from this source @ -[No] Did you review nursing and triage notes (agree or disagree)? Why? @ -[I reviewed and agree with nursing and triage notes] Were old charts reviewed (outside hosp., previous admission, EMS record, old EKG, old radiological studies, urgent care reports/EKG's, long-term records)? Report findings @ -[No old charts were reviewed] Differential Diagnosis (chest pain, altered mental status, abdominal pain women, abdominal pain men, vaginal bleeding, weakness, fever, dyspnea, syncope, headache, dizziness, GI bleed, back pain, seizure, CVA, palpatations, mental health, musculoskeletal)? @ -[Differential Chest Pain: Stable Angina, Unstable Angina, STEMI, NSTEMI Aortic Dissection, Pneumothorax, Musculoskeletal, Esophageal Spasm GERD, Cholecystitis, Pancreatitis, Zoster, this is not meant to be an all-inclusive list. EKG interpreted by me (3pts min.). @ -[As above] X-rays interpreted by me (1pt min.). @ -[Chest shows no acute cardiopulmonary process CT interpreted by me (1pt min.). @ -[None done] U/S interpreted by me (1pt. min.). @ -[None done] What testing was considered but not performed or refused? (CT, X-rays, U/S, labs)? Why? @ -[None] What meds were considered but not given or refused? Why? @ -[None] Did you discuss the management of the patient with other professionals (professionals i.e. , PA, [employer], lab, RT, psych nurse, social service liaison, assembly manager, teacher, food safety officer, community case manager)? Give summary @ -[EMH for admission for cardiac rule out Was smoking cessation discussed for >3mins.? @ -[No] Was critical care preformed (if so, how long)? @ -[No] Were there social determinants of health that impacted care today? How? (Homelessness, low income, unemployed, alcoholism, drug addiction, transportation, low edu. Level, literacy, decrease access to med. care, care home, rehab)? @ -[No] Was there de-escalation of care discussed even if they declined (Discuss DNR or withdrawal of care, Hospice)? DNR status @ -[No] What co-morbidities impacted this encounter? (DM, HTN, Smoking, COPD, CAD, Cancer, CVA, ARF, Chemo, Hep., AIDS, mental health diagnosis, sleep apnea, morbid obesity)? @ -[Smoking, hypertension] Was patient admitted / discharged? Hospital course, mention meds given and route, prescriptions, significant lab abnormalities, going to OR and other pertinent info. @ -[Admitted patient presented hypertensive, clinical chest pain, history of smoking. Patient did have blood pressure improvement after nitro, hydralazine. Patient had mild reaction Undiagnosed new problem with uncertain prognosis? @ -[No] Drug Therapy requiring intensive monitoring for toxicity (Heparin, Nitro, Insulin, Cardizem)? @ -[No] Were any procedures done? @ -[No] Diagnosis/symptom? @ -[chest pain, hypertensive urgency Acute, or Chronic, or Acute on Chronic? @ -[Acute Uncomplicated (without systemic symptoms) or Complicated (systemic symptoms)? @ -[Uncomplicated Side effects of treatment? @ -[No] Exacerbation, Progression, or Severe Exacerbation? @ -[No] Poses a threat to life or bodily function? How? (Chest pain, [place], [place], pneumonia, PE, COPD, DKA, ARF, appy, cholecystitis, CVA, Diverticulitis, Homicidal, Suicidal, threat to staff... and all critical care pts) @ -Yes possible ACS] Disposition Clinical Impression: Chest pain, Hypertensive urgency Disposition: [facility] Condition: Fair Referrals: None,Stated [Primary Care Provider] - 1-2 days Time of Disposition: 12:03
[2023-09-01] MEDS ORDERED: ONDANSETRON 4 MG/2 ML VIAL IVP PRN (12:22)
[2023-09-01] MEDS ORDERED: NALOXONE 0.4 MG/ML 1 ML VIAL IVP PRN (12:22)
[2023-09-01] MEDS ORDERED: BENZONATATE 100 MG CAP PO PRN (12:26)
[2023-09-01] MEDS ORDERED: ALBUTEROL NEBULIZED 2.5 MG/3 ML INHALATION PRN (12:26)
[2023-09-01] MEDS ORDERED: tiZANidine 4 MG TAB PO PRN (12:36)
[2023-09-01] MEDS ORDERED: ALPRAZolam 0.25 MG TAB PO PRN (12:37)
--- NOTE | 2023-09-01 12:38 | P.HPIM ---
History of Present Illness H&P Date: 09/01/23 Chief Complaint: Chest pain * 63-year-old patient with past medical history significant for hypertension, history of gastric physical reflux disease, history of congenital solitary kidney, history of occipital neuritis, anxiety, presents to the emergency department with complains of chest pain, patient states that he was at work when he started having midsternal chest pain he was diaphoretic and associated with shortness of breath. Patient states chest pain was central nonradiating. Patient felt weak associated with that patient said her blood pressure has been significantly elevated recently. Patient does complain of having family history of heart disease and he has been smoking as well. Patient states several years ago he had workup done at that time it was negative. * Workup initiated in ER included CBC which were WBC count within normal limits M 1117.8 platelet count of 159. Serum chemistry sodium 44242.6 BUN 18 creatinine 0.89 glucose 168. Troponin 0.012 lipase 49 * EKG obtained in ER showed sinus rhythm no ST segment changes * While in ER patient was given a dose of aspirin, given IV Solu-Medrol and sublingual nitroglycerin * Gentle place in observation with evaluation for cardiology REVIEW OF SYSTEMS: Chest pain , shortness of breath CONSTITUTIONAL: No fever, no malaise, no fatigue. HEENT: No recent visual problems or hearing problems. Denied any sore throat. CARDIOVASCULAR: Chest pain , shortness of breath PULMONARY: No shortness of breath, no cough, no hemoptysis. GASTROINTESTINAL: No diarrhea, no nausea, no vomiting, no abdominal pain. NEUROLOGICAL: No headaches, no weakness, no numbness. HEMATOLOGICAL: Denies any bleeding or petechiae. GENITOURINARY: Denies any burning micturition, frequency, or urgency. MUSCULOSKELETAL/RHEUMATOLOGICAL: Denies any joint pain, swelling, or any muscle pain. ENDOCRINE: Denies any polyuria or polydipsia. PHYSICAL EXAMINATION: GENERAL: The patient is alert and oriented x3, not in any acute distress. Well developed, well nourished. HEENT: Pupils are round and equally reacting to light. EOMI Normocephalic, atraumatic. No pharyngeal erythema. No thyromegaly. CARDIOVASCULAR: S1 and S2 present. No murmurs, rubs, or gallops. PULMONARY: Chest is clear to auscultation, no wheezing or crackles. ABDOMEN: Soft, nontender, nondistended, normoactive bowel sounds. No palpable organomegaly. MUSCULOSKELETAL: No joint swelling or deformity. EXTREMITIES: No cyanosis, clubbing, or pedal edema. NEUROLOGICAL: Gross neurological examination did not reveal any focal deficits. SKIN: No rashes. Past Medical History Past Medical History: CVA/TIA, GERD/Reflux, Hypertension Additional Past Medical History / Comment(s): Pt was born with one kidney, past UTI, occipital neuralgia-had nerve block History of Any Multi-Drug Resistant Organisms: None Reported Past Surgical History: Back Surgery Additional Past Surgical History / Comment(s): 2 back surgeries-fusions and refusion. Past Anesthesia/Blood Transfusion Reactions: No Reported Reaction Additional Past Anesthesia/Blood Transfusion Reaction / Comment(s): Pt has never received blood. Past Psychological History: Anxiety Past Alcohol Use History: Occasional Past Drug Use History: None Reported - Past Family History Father Family Medical History: Coronary Artery Disease (CAD), Myocardial Infarction ([place]) Additional Family Medical History / Comment(s): Father has had colectomy for GI bleed. He is 87 yrs old. Mother Family Medical History: Coronary Artery Disease (CAD) Additional Family Medical History / Comment(s): Mother has cardiac stent. She is 76yrs old. Medications and Allergies Home Medications Medication Instructions Recorded Confirmed Type No Known Home Medications 09/01/23 09/01/23 History Allergies Allergy/AdvReac Type Severity Reaction Status Date / Time hydralazine Allergy Rash/Hives Verified 09/01/23 12:19 Penicillins Allergy Rash/Hives Verified 09/01/23 12:19 rawfruit Allergy Anaphylaxis Uncoded 09/01/23 12:19 Physical Exam Vitals: Vital Signs Temp Pulse Pulse Resp BP Pulse Ox 09/01/23 11:30 98.8 F 89 18 146/90 96 09/01/23 11:15 87 18 156/94 98 09/01/23 11:02 89 18 149/101 97 09/01/23 10:36 90 09/01/23 10:21 98.6 F 93 16 202/120 98 Intake and Output 08/31/23 09/01/23 09/01/23 22:59 06:59 14:59 Other: Weight 77.111 kg Results CBC & Chem 7: 09/01/23 10:45 09/01/23 10:45 Labs: Abnormal Lab Results - Last 24 Hours (Table) 09/01/23 09/01/23 Range/Units 10:45 10:45 Hgb 17.8 H (13.0-17.5) gm/dL Glucose 168 H (74-99) mg/dL Assessment and Plan Assessment: Assessment and plan * Chest pain rule out acute coronary syndrome * History of hypertension, with hypertensive urgency * History of generalized anxiety * Tobacco use history * In regards to chest pain, serial troponins ordered, cardiology consulted, echocardiogram ordered, d-dimer ordered * In regards to hypertensive urgency, patient given oral losartan, per ALLERGY list patient has ALLERGIC to hydralazine * In regards to history of tobacco use , patient quit 2 years ago. * In regards to history of anxiety, Xanax ordered as needed * Patient has not followed up with a provider for several months doesn't take any medications at home. Patient counseled regarding medication compliance * CODE STATUS is full code Time with Patient: Greater than 30
[2023-09-01] MEDS ORDERED: MAG HYDROX/AL HYDROX/SIMETH 30 ML, HYOSCYAMINE ELIXIR 10 ML PO ONE ×2 (12:45)
[2023-09-01] MEDS: SODIUM CHLORIDE 0.9% 1,000 ML IV SCH (13:44)
[2023-09-01] MEDS: LOSARTAN 25 MG TAB PO SCH (13:45)
[2023-09-01] MEDS: ACETAMINOPHEN TAB 325 MG TAB PO PRN (20:09)
[2023-09-02] MEDS: SODIUM CHLORIDE 0.9% 1,000 ML IV SCH (03:39)
[2023-09-02] MEDS: ACETAMINOPHEN TAB 325 MG TAB PO PRN (06:07)
[2023-09-02] MEDS ORDERED: MAG HYDROX/AL HYDROX/SIMETH 30 ML CUP PO PRN (08:40)
[2023-09-02] MEDS ORDERED: ASPIRIN 325 MG TAB PO SCH (09:00)
[2023-09-02] MEDS ORDERED: hydroCHLOROthiazide 25 MG TAB PO SCH (09:00)
[2023-09-02] MEDS ORDERED: ASPIRIN 81 MG PO SCH (09:00)
[2023-09-02] MEDS ORDERED: ENOXAPARIN 40 MG/0.4 ML SYRINGE SQ SCH (09:00)
[2023-09-02 09:38] LABS: BUN/Creat Ratio 17.78 Ratio (12.00-20.00); Calcium 9.4 mg/dL (8.7-10.3); Carbon Dioxide 25.2 mmol/L (21.6-31.8); Chloride 105 mmol/L (96-109); Chol/HDL Ratio 2.51 Ratio; Glucose 148 mg/dL (70-110); Magnesium 2.3 mg/dL (1.5-2.4); Sodium 140 mmol/L (135-145); VLDL Calculation 14.22 mg/dL (5.00-40.00)
--- NOTE | 2023-09-02 09:48 | CA ---
Transthoracic Echo Report Name: Chalo Christianson Age: 63 Gender: M : 1960 Exam Date: 09/01/2023 13:50 Exam Location: [facility] Ht (in): 69 Wt (lb): 170 Ordering Physician: Mark Sosa Attending/Referring Phys: [id number], Sheila Engine Research Engineer Rosa Maria English RDCS Procedure CPT: Indications: Chest Pain Cardiac Hx: Technical Quality: Fair Contrast 1: Total Dose (mL): Contrast 2: Total Dose (mL): MEASUREMENTS (Male / Female) Normal Values 2D ECHO LV Diastolic Diameter PLAX 4.4 cm 4.2 - 5.9 / 3.9 - 5.3 cm LV Systolic Diameter PLAX 3.0 cm IVS Diastolic Thickness 1.0 cm 0.6 - 1.0 / 0.6 - 0.9 cm LVPW Diastolic Thickness 1.1 cm 0.6 - 1.0 / 0.6 - 0.9 cm LV Relative Wall Thickness 0.5 RV Internal Dim ED PLAX 3.6 cm LA Systolic Diameter LX 3.1 cm 3.0 - 4.0 / 2.7 - 3.8 cm LV Diastolic Volume MOD 4C 68.4 cm??? LV Systolic Volume MOD 4C 34.2 cm??? LV Ejection Fraction MOD 4C 50.1 % LV Cardiac Index MOD 4C 1302.4 cm???/min???m??? LV Diastolic Length 4C 8.2 cm LV Systolic Length 4C 6.8 cm LV Diastolic Volume MOD 2C 93.9 cm??? LV Systolic Volume MOD 2C 40.3 cm??? LV Ejection Fraction MOD 2C 57.1 % LV Cardiac Index MOD 2C 2037.8 cm???/min???m??? LV Diastolic Length 2C 8.5 cm LV Systolic Length 2C 6.7 cm LA Volume 39.8 cm??? 18 - 58 / 22 - 52 cm??? LA Volume Index 20.4 cm???/m??? 16 - 28 cm???/m??? M-MODE Aortic Root Diameter MM 3.5 cm MV E Point Septal Separation 0.4 cm AV Cusp Separation MM 2.3 cm DOPPLER AV Peak Velocity 116.3 cm/s AV Peak Gradient 5.4 mmHg MV Area PHT 4.1 cm??? Mitral E Point Velocity 85.3 cm/s Mitral A Point Velocity 91.7 cm/s Mitral E to A Ratio 0.9 MV Deceleration Time 183.6 ms MV E' Velocity 7.1 cm/s Mitral E to MV E' Ratio 12.1 TR Peak Velocity 248.3 cm/s TR Peak Gradient 24.7 mmHg Right Ventricular Systolic Press 29.7 mmHg FINDINGS Left Ventricle Left ventricular ejection fraction is estimated at 55-60 %. Left ventricular cavity size normal. Left ventricular wall thickness normal. No obvious regional wall motion abnormalities. Right Ventricle Mild right ventricular dilatation. Right ventricular systolic pressure within normal limits. Right Atrium Normal right atrial size. Left Atrium Normal left atrial size. Mitral Valve Structurally normal mitral valve. No mitral stenosis, regurgitation or prolapse. Aortic Valve Trileaflet aortic valve. No aortic valve stenosis or regurgitation. Tricuspid Valve Structurally normal tricuspid valve. Trace to mild tricuspid regurgitation. Pulmonic Valve Structurally normal pulmonic valve. Pericardium No pericardial effusion. Aorta Normal size aortic root and proximal ascending aorta. CONCLUSIONS Left ventricular ejection fraction is estimated at 55-60 %. No obvious regional wall motion abnormalities. Mild right ventricular dilatation. no significant valvular dysfunction No pericardial effusion Previewed by: Dr Thaddeus Jeffery (Electronically Signed) Final Date: 02 September 2023 09:47
--- NOTE | 2023-09-02 10:14 | P.CRDCN ---
History of Present Illness History of present illness: HISTORY OF PRESENT ILLNESS: This is a 63-year-old male with a past medical history significant for hypertension and former nicotine dependence. 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 We have been asked to see the patient in consultation for chest pain. Patient examined at the bedside. Patient reports he has been having chest pain on and off recently. He states yesterday he was at work putting boxes away and began to have shortness of breath and chest pain. He states he left work and went home and his brought him to the emergency room for further evaluation. At the time of examination, the patient denies any chest pain or pressure. He denies any shortness of breath. He does report a history of hypertension but states he has not been taking any antihypertensive medications recently because he is looking for a new doctor. Apparently he began taking his 's blood pressure medications instead. He is a former cigarette smoker. He denies any alcohol use or marijuana use. He reports a family history of coronary artery disease in both his mother and father but not until their 70s80s. Patient's blood pressure was noted to be extremely elevated on admiss ion with a reading of 202/120. Blood pressure this morning remains elevated with a reading of 162/94. DIAGNOSTICS: - EKG reveals sinus mechanism with no signs of acute ischemia. LVH. - Chest xray negative for acute process. - Laboratory data: WBC 6.7. Hemoglobin 17.8. Platelet count 159. D-dimer 0.54. Sodium 140. Potassium 5.0. BUN 16. Creatinine 0.9. Troponin negative x 3. - Current home cardiac medications include none -Echocardiogram completed revealing ejection fraction 55 to 60%, mild right ventricular dilatation, no significant valvular dysfunction REVIEW OF SYSTEMS: At the time of my exam: CONSTITUTIONAL: Denies fever or chills. HEENT: Denies blurred vision, vision changes, or eye pain. Denies hemoptysis CARDIOVASCULAR: Denies chest pain. Denies orthopnea. Denies PND. Denies palpitations RESPIRATORY: Denies shortness of breath. GASTROINTESTINAL: Denies abdominal pain. Denies nausea or vomiting. HEMATOLOGIC: Denies bleeding disorders. GENITOURINARY: Denies any blood in urine. SKIN: Denies pruitis. Denies rash. PHYSICAL EXAM: VITAL SIGNS: Reviewed. GENERAL: Well-developed in no acute distress. HEENT: Head is normocephalic. Pupils are equal, round. Sclerae anicteric. Mucous membranes of the mouth are moist. Neck supple. No JVD or thyromegaly LUNGS: Respirations even and unlabored. Lungs essentially clear to auscultation bilaterally. HEART: Regular rate and rhythm. S1 and S2 heard. ABDOMEN: Soft. Nondistended. Nontender. EXTREMITIES: Normal range of motion. No clubbing or cyanosis. Peripheral pulses intact. No lower extremity edema NEUROLOGIC: Awake and alert. Oriented x 3. ASSESSMENT: Hypertensive urgency, improving Chest pain, likely secondary to above, troponin negative x 3 History of hypertension, not taking antihypertensive medications on an outpatient basis Medication noncompliance Former nicotine dependence PLAN: An acute coronary event has been ruled out Patient has been started on losartan 25 mg daily per internal medicine Add aspirin 81 mg daily, atorvastatin 40 mg at night, and hydrochlorothiazide 25 mg daily Echocardiogram obtained and reviewed Patient may be discharged home today from a cardiac standpoint He is to follow-up on an outpatient basis We will plan for outpatient stress testing once patient's blood pressure is controlled Nurse practitioner note has been reviewed by physician. Signing provider agrees with the documented findings, assessment, and plan of care documented by HOT SEALING MACHINE OPERATOR as a scribe. Past Medical History Past Medical History: CVA/TIA, GERD/Reflux, Hypertension Additional Past Medical History / Comment(s): Pt was born with one kidney, past UTI, occipital neuralgia-had nerve block History of Any Multi-Drug Resistant Organisms: None Reported Past Surgical History: Back Surgery, Heart Catheterization Additional Past Surgical History / Comment(s): 2 back surgeries-fusions and refusion. Past Anesthesia/Blood Transfusion Reactions: No Reported Reaction Additional Past Anesthesia/Blood Transfusion Reaction / Comment(s): Pt has never received blood. Past Psychological History: Anxiety Additional Psychological History / Comment(s): Pt resides with his spouse. He is independent. He uses no assistive device. He drives. He has xanax for anxitey and states it helps some. Smoking Status: Former smoker Past Alcohol Use History: Occasional Additional Past Alcohol Use History / Comment(s): Pt states he started smoking at age 15 yrs.he stated he smoked 2 ppd. quit 2012. He drinks beer occasionally-but less than 14 per week. Past Drug Use History: None Reported - Past Family History Father Family Medical History: Coronary Artery Disease (CAD), Myocardial Infarction ([place]) Additional Family Medical History / Comment(s): Father has had colectomy for GI bleed. He is 87 yrs old. Mother Family Medical History: Coronary Artery Disease (CAD) Additional Family Medical History / Comment(s): Mother has cardiac stent. She is 76yrs old. Medications and Allergies Home Medications Medication Instructions Recorded Confirmed Type No Known Home Medications 09/01/23 09/01/23 History Allergies Allergy/AdvReac Type Severity Reaction Status Date / Time hydralazine Allergy Rash/Hives Verified 09/01/23 12:19 Penicillins Allergy Rash/Hives Verified 09/01/23 12:19 rawfruit Allergy Anaphylaxis Uncoded 09/01/23 12:19 Physical Exam Vitals: Vital Signs Temp Pulse Pulse Pulse Resp BP BP 09/02/23 08:12 09/02/23 08:00 61 162/94 09/02/23 07:00 98 F 76 16 138/85 09/02/23 02:00 98.2 F 74 16 144/80 09/01/23 20:00 98.1 F 83 16 138/74 09/01/23 15:00 98.9 F 83 16 155/95 09/01/23 13:30 76 18 166/106 09/01/23 13:00 76 17 155/97 09/01/23 12:30 80 19 139/97 09/01/23 12:00 85 16 146/90 09/01/23 11:30 98.8 F 89 18 156/94 09/01/23 11:15 87 18 156/94 09/01/23 11:02 89 18 149/101 09/01/23 11:00 94 18 197/115 09/01/23 10:36 87 90 17 197/115 09/01/23 10:21 98.6 F 93 16 202/120 Pulse Ox 09/02/23 08:12 97 09/02/23 08:00 98 09/02/23 07:00 98 09/02/23 02:00 98 09/01/23 20:00 95 09/01/23 15:00 96 09/01/23 13:30 09/01/23 13:00 09/01/23 12:30 09/01/23 12:00 09/01/23 11:30 96 09/01/23 11:15 98 09/01/23 11:02 97 09/01/23 11:00 09/01/23 10:36 09/01/23 10:21 98 Intake and Output 09/01/23 09/02/23 09/02/23 22:59 06:59 14:59 Other: # Voids 1 1 Weight 77.111 kg Results 09/01/23 10:45 09/02/23 06:08 Cardiac Enzymes 09/01/23 09/01/23 09/01/23 Range/Units 10:45 10:45 12:29 AST 34 (17-59) U/L Troponin I <0.012 <0.012 (0.000-0.034) ng/mL 09/01/23 Range/Units 15:35 AST (17-59) U/L Troponin I <0.012 (0.000-0.034) ng/mL Coagulation 09/01/23 Range/Units 10:45 PT 10.5 (10.0-12.5) sec APTT 24.9 (22.0-30.0) sec CBC 09/01/23 Range/Units 10:45 WBC 6.7 (3.8-10.6) k/uL RBC 5.66 (4.30-5.90) m/uL Hgb 17.8 H (13.0-17.5) gm/dL Hct 51.8 (39.0-53.0) % Plt Count 159 (150-450) k/uL Comprehensive Metabolic Panel 09/01/23 Range/Units 10:45 Sodium 137 (137-145) mmol/L Potassium 4.6 (3.5-5.1) mmol/L Chloride 107 (98-107) mmol/L Carbon Dioxide 24 (22-30) mmol/L BUN 18 (9-20) mg/dL Creatinine 0.89 (0.66-1.25) mg/dL Glucose 168 H (74-99) mg/dL Calcium 10.0 (8.4-10.2) mg/dL AST 34 (17-59) U/L ALT 41 (4-49) U/L Alkaline Phosphatase 50 (38-126) U/L Total Protein 8.0 (6.3-8.2) g/dL Albumin 4.9 (3.5-5.0) g/dL Current Medications Generic Name Dose Route Start Last Admin Trade Name Freq PRN Reason Stop Dose Admin Acetaminophen 650 mg 09/01/23 12:22 09/02/23 06:07 Acetaminophen Tab 325 Mg Tab PO 650 mg Q6HR PRN Administration Mild Pain or Fever > 100.5 Albuterol Sulfate 2.5 mg 09/01/23 12:26 Albuterol Nebulized 2.5 Mg/3 Ml INHALATION RT-Q2H PRN Difficulty Breathing Alprazolam 0.25 mg 09/01/23 12:37 09/01/23 17:48 Alprazolam 0.25 Mg Tab PO 0.25 mg BID PRN Administration Anxiety Aspirin 325 mg 09/02/23 09:00 Aspirin 325 Mg Tab PO DAILY DELANEY Benzonatate 100 mg 09/01/23 12:26 Benzonatate 100 Mg Cap PO TID PRN Cough Enoxaparin Sodium 40 mg 09/02/23 09:00 Enoxaparin 40 Mg/0.4 Ml Syringe SQ DAILY [facility] Sodium Chloride 1,000 mls @ 75 mls/hr 09/01/23 12:45 09/02/23 03:39 Saline 0.9% IV Not Given .[id number] DELANEY Losartan Potassium 25 mg 09/01/23 12:45 09/01/23 13:45 Losartan 25 Mg Tab PO 25 mg DAILY DELANEY Administration Naloxone HCl 0.2 mg 09/01/23 12:22 Naloxone 0.4 Mg/Ml 1 Ml Vial IVP Q2M PRN Opioid Reversal Nitroglycerin 0.4 mg 09/01/23 11:54 Nitroglycerin Sl Tabs 0.4 Mg Tab SUBLINGUAL Q5M PRN Chest Pain Ondansetron HCl 4 mg 09/01/23 12:22 Ondansetron 4 Mg/2 Ml Vial IVP Q8HR PRN Nausea And Vomiting Tizanidine HCl 2 mg 09/01/23 12:36 Tizanidine 4 Mg Tab PO TID PRN Muscle Spasm Intake and Output 09/01/23 09/02/23 09/02/23 22:59 06:59 14:59 Other: # Voids 1 1 Weight 77.111 kg 09/01/23 10:45 09/01/23 10:45
[2023-09-02] MEDS: LOSARTAN 25 MG TAB PO SCH (11:10)
--- NOTE | 2023-09-02 12:44 | P.DS ---
Providers Date of admission: 09/01/23 11:57 Expected date of discharge: 09/02/23 Attending physician: Roni Madsen MD Consults: 09/01/23 11:54 Consult Physician Urgent Consulting Provider: Gregory Lopez Consult Reason/Comments: chest pain Do you want consulting provider notified?: Yes Primary care physician: Stated None Hospital Course: * 63-year-old patient with past medical history significant for hypertension, history of gastric physical reflux disease, history of congenital solitary kidney, history of occipital neuritis, anxiety, presents to the emergency department with complains of chest pain, patient states that he was at work when he started having midsternal chest pain he was diaphoretic and associated with shortness of breath. Patient states chest pain was central nonradiating. Patient felt weak associated with that patient said her blood pressure has been significantly elevated recently. Patient does complain of having family history of heart disease and he has been smoking as well. Patient states several years ago he had workup done at that time it was negative. * Workup initiated in ER included CBC which were WBC count within normal limits M 1117.8 platelet count of 159. Serum chemistry sodium 09277.6 BUN 18 creatinine 0.89 glucose 168. Troponin 0.012 lipase 49 * EKG obtained in ER showed sinus rhythm no ST segment changes * While in ER patient was given a dose of aspirin, given IV Solu-Medrol and sublingual nitroglycerin * 09/02/2023: Patient was placed in observation, seen by cardiology serial troponins obtained negative, lipid profile reviewed started on statin, started on antihypertensive medication. Echocardiogram completed. Shows ejection fraction 60% no wall motion abnormality noted patient cleared for discharge from cardiology standpoint with outpatient follow-up in 1 week for stress test outpatient REVIEW OF SYSTEMS: Chest pain resolved, shortness of breath resolved CONSTITUTIONAL: No fever, no malaise, no fatigue. HEENT: No recent visual problems or hearing problems. Denied any sore throat. CARDIOVASCULAR: Chest pain , shortness of breath RESOLVED PULMONARY: No shortness of breath, no cough, no hemoptysis. GASTROINTESTINAL: No diarrhea, no nausea, no vomiting, no abdominal pain. NEUROLOGICAL: No headaches, no weakness, no numbness. HEMATOLOGICAL: Denies any bleeding or petechiae. GENITOURINARY: Denies any burning micturition, frequency, or urgency. MUSCULOSKELETAL/RHEUMATOLOGICAL: Denies any joint pain, swelling, or any muscle pain. ENDOCRINE: Denies any polyuria or polydipsia. PHYSICAL EXAMINATION: GENERAL: The patient is alert and oriented x3, not in any acute distress. Well developed, well nourished. HEENT: Pupils are round and equally reacting to light. EOMI Normocephalic, atraumatic. No pharyngeal erythema. No thyromegaly. CARDIOVASCULAR: S1 and S2 present. No murmurs, rubs, or gallops. PULMONARY: Chest is clear to auscultation, no wheezing or crackles. ABDOMEN: Soft, nontender, nondistended, normoactive bowel sounds. No palpable organomegaly. MUSCULOSKELETAL: No joint swelling or deformity. EXTREMITIES: No cyanosis, clubbing, or pedal edema. NEUROLOGICAL: Gross neurological examination did not reveal any focal deficits. SKIN: No rashes. Assessment and plan * Chest pain ruled out acute coronary syndrome * History of hypertension, with hypertensive urgency * History of generalized anxiety * Tobacco use history * In regards to chest pain, serial troponins negative, echocardiogram within normal limits, outpatient follow-up with cardiology * In regards to hypertensive urgency, patient started on antihypertensive medication prescription provided recommend medication compliance recommend outpatient follow-up with cardiology * In regards to history of tobacco use , patient quit 2 years ago. * In regards to history of anxiety, need to establish a primary care physician to follow-up outpatient, previously was taking Xanax however has not taken anything for several years Patient Condition at Discharge: Fair Plan - Discharge Summary New Discharge Prescriptions: New Losartan [Cozaar] 25 mg PO DAILY 30 Days #30 tab hydroCHLOROthiazide [Hydrodiuril] 25 mg PO DAILY 30 Days #30 tab Nitroglycerin Sl Tabs [Nitrostat] 0.4 mg SUBLINGUAL Q5M PRN 10 Days #15 tab PRN Reason: Chest Pain Aspirin [Adult Low Dose Aspirin EC] 81 mg PO DAILY 30 Days #30 tab Atorvastatin [Lipitor] 40 mg PO HS 30 Days #30 tab Discharge Medication List Aspirin [Adult Low Dose Aspirin EC] 81 mg PO DAILY 30 Days #30 tab 09/02/23 [Rx] Atorvastatin [Lipitor] 40 mg PO HS 30 Days #30 tab 09/02/23 [Rx] Losartan [Cozaar] 25 mg PO DAILY 30 Days #30 tab 09/02/23 [Rx] Nitroglycerin Sl Tabs [Nitrostat] 0.4 mg SUBLINGUAL Q5M PRN 10 Days #15 tab 09/02/23 [Rx] hydroCHLOROthiazide [Hydrodiuril] 25 mg PO DAILY 30 Days #30 tab 09/02/23 [Rx] Follow up Appointment(s)/Referral(s): None,Stated [Primary Care Provider] - 1-2 days Thaddeus Jeffery MD [Medical Doctor] - 1 Week (Follow-up in 1 week for outpatient stress test) Discharge Disposition: HOME SELF-CARE
[2023-09-02 13:37] VITALS: BP 149/89; PULSE 69; RESP 18; TEMP 97.7
[2023-09-02] MEDS ORDERED: ATORVASTATIN 40 MG TAB PO SCH (21:00)
== END 2023-09-02 15:04 | disposition home or self-care (01) ==
LOC: EC 10:13 → 6NMEDSUR 11:57
PROVIDERS: ADMIT Internal Medicine; ATTEND Internal Medicine
DX: R07.89 Other chest pain (principal); I16.0 Hypertensive urgency; T46.5X6A Underdosing of other antihypertensive drugs, initial encounter; Z91.148 Patient's other noncompliance with medication regimen for other reason; F41.1 Generalized anxiety disorder; Q60.0 Renal agenesis, unilateral; Z88.0 Allergy status to penicillin; Z88.8 Allergy status to other drugs, medicaments and biological substances; Z91.018 Allergy to other foods; Z87.891 Personal history of nicotine dependence; Z82.49 Family history of ischemic heart disease and other diseases of the circulatory system
CPT/HCPCS: 96361 ×3; 96374; 96375; 99285; 36415; 94760; 93005; 93306; 85379; 80061; 80053; 80048; 83690; 83735 ×2; 84484; 85025; 85610; 85730; 83036; 71046; G0378 ×2; J0360; J1200; J2930; J3490